=== PATIENT | female | born 1955 | race Caucasian/White ===

== ENCOUNTER 2021-07-29 13:51 | Outpatient (RCR) | payer OTHER, SELFPAY ==
--- NOTE | 2021-07-29 17:18 | PT.OIE ---
Current Diagnoses Dizziness and giddiness (07/29/21) Visit Care Team Role Provider Type Cedrick Briceno DO Attending Provider Non-Staff Family Provider Primary Care Provider Referring Provider Specialty: Internal Medicine Address: [facility] [place], [address] Email: Physical Therapy Initial Evaluation PT-OP-A Visit Information Start: 07/29/21 16:53 Freq: Status: Active Protocol: Document 07/29/21 14:30 DCW (Rec: 07/29/21 17:18 DCW [id number]) Out-Patient Physical Therapy Visit Information Visit Information Visit Type Initial Evaluation Visit Start Time 14:30 Visit Stop Time 15:15 Total Visit Minutes 45 Visit Number 1 Number of UNHAIRER Visits 0 Evaluation Information Evaluation Date 07/29/21 PT-OP-B Current Condition Start: 07/29/21 16:53 Freq: Status: Active Protocol: Document 07/29/21 14:30 DCW (Rec: 07/29/21 17:18 DCW [id number]) Current Condition History of Current Condition Onset Date 07/29/21 Current Complaints Position-dependent vertigo History of Current Condition Pt is a 66 year old female presenting with an approximately seven hour history of positional vertigo. Pt admits she has had positional vertigo off and on for decades, it frequently comes and goes, she can be asymptomatic for months in-between episodes, but it always seems to come back. Pt notes that she was previously successfully treated with canalith repositioning by a chiropractor, which helped for a time. Since that time, she performs BDEs twice weeks, whether or not she has symptoms.Pt reports the vertigo lasts only ~one minute , but she will often feel off balance or nauseated for hours . Symptoms are provoked by performing sit<->supine movements. Pt denies recent hearing changes, tinnitus Pt reports symptoms are waxing/ waning in nature. 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 PT-OP-C Subjective Start: 07/29/21 16:53 Freq: Status: Active Protocol: Document 07/29/21 14:30 DCW (Rec: 07/29/21 17:18 DCW [id number]) OP-PT Subjective Patient Comments Patient Comments I'm feeling better than I was this morning. Patient Reported Progress Improving Patient Questionnaires Dizziness Handicap Inventory DHI Score 68% DHI Functional Impairment 60 to 79% Impaired (Score 60- 79) PT-OP-O Vestibular Start: 07/29/21 16:53 Freq: Status: Active Protocol: Document 07/29/21 14:30 DCW (Rec: 07/29/21 17:18 DCW [id number]) Vestibular Assessment Screening Tests Vestibular Artery Screen Negative Auditory Tests Bruno Test Within normal limits Rinne Test Negative Air Conduction Results Equal Visual Testing Smooth Pursuits Horizontal WNL Smooth Pursuits Vertical WNL Saccades Horizontal WNL Saccades Vertical WNL Heave Test Negative Thrust Head Negative Positional Testing [place]-Hallpike Negative Left,Negative Right Rolling Test Negative Left,Negative Right Supine to Sit Negative Sit to Supine Negative PT-OP-Q Treatments Start: 07/29/21 16:53 Freq: Status: Active Protocol: Document 07/29/21 14:30 DCW (Rec: 07/29/21 17:18 DCW [id number]) Canalithic Repositioning BPPV Treatment Braeden Affected Canal(s) ?Posterior? Reps R x1 PT-OP-T Assessment and Plan Start: 07/29/21 16:53 Freq: Status: Active Protocol: Document 07/29/21 14:30 DCW (Rec: 07/29/21 17:18 DCW [id number]) Physical Therapy Assessment Rehab Potential Rehabilitation Potential Excellent Evaluation Complexity Number of Personal Factors/Comorbidities 1-2 Number of Body Systems Impaired 1-2 Clinical Presentation at Evaluation Stable Impairments Impairments Balance,Vestibular Goals One Impairment Pt reports positional vertigo with bed mobiltiy Fpc Goal (LTG) Pt to be asymptomatic with all bed mobility for a full week LTG Duration 08/28/21 Assessment Summary Assessment Pt's vestibular examination today was entirely negative. Pt's subjective history and medical history are very strongly suggestive of BPPV. Pt did admit she had performed her BDEs earlier today, which , as BPPV symptoms are a fatigable reflex, could have possibly resulted in her negative testing this afternoon. As BPPV typically overwhelmingly presents as posterior canalithiasis, and pt reports she typically sleeps on her right side, this therapist felt comfortable playing to the odds and attempting a right-sided modified Braeden maneuver in an effort to clear potential canaliths, despite negative positional testing. Additionally, pt and her were provided with verbal and written instructions in performing a self-CRM. As pt needs to drive one hour to get to this clinic, it was decided that no further appointments be scheduled at this time, and pt and her will try to self-treat as necessary. If pt does require further treatment, pt is welcome to return to this clinic, or may look for treatment closer to home. Also discussed with pt today the overall inconclusive effectiveness of BDEs to treat or prevent recurrence of BPPV. Physical Therapy Plan Frequency and Duration Frequency of Treatment as indicated Duration of Treatment 6 weeks Plan of Care Start Date 07/29/21 Plan of Care End Date 09/09/21 Therapeutic Interventions Therapeutic Interventions Balance Training,Canalithic Repositioning,Vestibular Rehabilitation Next Visit Focus/Plan Next Note Type Treatment Note Next Visit Plan Further positional testing, CRM as indicated
--- NOTE | 2021-07-29 17:19 | PT.OPPOC ---
Physical, Occupational & Speech Therapy At [facility] Current Diagnoses Dizziness and giddiness (07/29/21) Visit Care Team Role Provider Type Cedrick Briceno DO Attending Provider Non-Staff Family Provider Primary Care Provider Referring Provider Specialty: Internal Medicine Address: [facility]– [place][note 2] [place], [address] Email: Plan Of Care PT-OP-T Assessment and Plan Start: 07/29/21 16:53 Freq: Status: Active Protocol: Document 07/29/21 14:30 DCW (Rec: 07/29/21 17:18 DCW [id number]) Physical Therapy Assessment Rehab Potential Rehabilitation Potential Excellent Evaluation Complexity Number of Personal Factors/Comorbidities 1-2 Number of Body Systems Impaired 1-2 Clinical Presentation at Evaluation Stable Impairments Impairments Balance,Vestibular Goals One Impairment Pt reports positional vertigo with bed mobility Custodial Goal (LTG) Pt to be asymptomatic with all bed mobility for a full week LTG Duration 08/28/21 Assessment Summary Assessment Pt's vestibular examination today was entirely negative. Pt's subjective history and medical history are very strongly suggestive of BPPV. Pt did admit she had performed her BDEs earlier today, which , as BPPV symptoms are a fatigable reflex, could have possibly resulted in her negative testing this afternoon. As BPPV typically overwhelmingly presents as posterior canalithiasis, and pt reports she typically sleeps on her right side, this therapist felt comfortable playing to the odds and attempting a right-sided modified Braeden maneuver in an effort to clear potential canaliths, despite negative positional testing. Additionally, pt and her were provided with verbal and written instructions in performing a self-CRM. As pt needs to drive one hour to get to this clinic, it was decided that no further appointments be scheduled at this time, and pt and her will try to self-treat as necessary. If pt does require further treatment, pt is welcome to return to this clinic, or may look for treatment closer to home. Also discussed with pt today the overall inconclusive effectiveness of BDEs to treat or prevent recurrence of BPPV. Physical Therapy Plan Frequency and Duration Frequency of Treatment as indicated Duration of Treatment 6 weeks Plan of Care Start Date 07/29/21 Plan of Care End Date 09/09/21 Therapeutic Interventions Therapeutic Interventions Balance Training,Canalithic Repositioning,Vestibular Rehabilitation Next Visit Focus/Plan Next Note Type Treatment Note Next Visit Plan Further positional testing, CRM as indicated Plan of Care Dates Plan of Care Start Date 07/29/21 Plan of Care End Date 09/09/21 Electronically Signed by: Kyle Borden, PT 07/29/21 [id number] Please Sign and Return: I have reviewed this Plan of Care and certify that the skilled therapy services above are required to meet the patient?s needs. Physician Signature Date Printed Name and Credentials Clinical Instructor Signature Printed Name and Credentials
--- NOTE | 2021-11-12 10:15 | PT.OPDS ---
Current Diagnoses Dizziness and giddiness (07/29/21) Visit Care Team Role Provider Type Cedrick Briceno DO Attending Provider Non-Staff Family Provider Primary Care Provider Referring Provider Specialty: Internal Medicine Address: [facility] [place], [address] Email: Visit Number Visit Number 1 Discharge Summary PT-OP-B Current Condition Start: 07/29/21 16:53 Freq: Status: Active Protocol: Document 07/29/21 14:30 DCW (Rec: 07/29/21 17:18 DCW [id number]) Current Condition History of Current Condition Onset Date 07/29/21 Current Complaints Position-dependent vertigo History of Current Condition Pt is a 66 year old female presenting with an approximately seven hour history of positional vertigo. Pt admits she has had positional vertigo off and on for decades, it frequently comes and goes, she can be asymptomatic for months inbetween episodes, but it always seems to come back. Pt notes that she was previously successfully treated with canalith repositioning by a chiropractor, which helped for a time. Since that time, she performs BDEs twice weeks, whether or not she has symptoms.Pt reports the vertigo lasts only ~one minute , but she will often feel off balance or nauseated for hours . Symptoms are provoked by performing sit<->supine movements. Pt denies recent hearing changes, tinnitus Pt reports symptoms are waxing/ waning in nature. 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 PT-OP-C Subjective Start: 07/29/21 16:53 Freq: Status: Active Protocol: Document 07/29/21 14:30 DCW (Rec: 07/29/21 17:18 DCW [id number]) OP-PT Subjective Patient Comments Patient Comments I'm feeling better than I was this morning. Patient Reported Progress Improving Patient Questionnaires Dizziness Handicap Inventory DHI Score 68% DHI Functional Impairment 60 to 79% Impaired (Score 60- 79) PT-OP-O Vestibular Start: 07/29/21 16:53 Freq: Status: Active Protocol: Document 07/29/21 14:30 DCW (Rec: 07/29/21 17:18 DCW [id number]) Vestibular Assessment Screening Tests Vestibular Artery Screen Negative Auditory Tests Bruno Test Within normal limits Rinne Test Negative Air Conduction Results Equal Visual Testing Smooth Pursuits Horizontal WNL Smooth Pursuits Vertical WNL Saccades Horizontal WNL Saccades Vertical WNL Heave Test Negative Thrust Head Negative Positional Testing [place]-Hallpike Negative Left,Negative Right Rolling Test Negative Left,Negative Right Supine to Sit Negative Sit to Supine Negative PT-OP-T Assessment and Plan Start: 07/29/21 16:53 Freq: Status: Active Protocol: Document 11/12/21 10:13 DCW (Rec: 11/12/21 10:15 DCW [id number]) Physical Therapy Assessment Assessment Summary Assessment At time of eval, pt was treated for BPPV, and she and her were instructed in self-Braeden. Due to pt's one hour drive to this clinic, they were unsure if they would return for follow-up. Pt has now not been seen in more than three months. Pt will be discharged from skilled PT at this time, will require a new referral in order to return Physical Therapy Plan Discharge Physical Therapy Discharge Reasons No Longer Attending PT Next Visit Focus/Plan Next Note Type Discharge Summary
== END 2021-11-16 13:50 ==
LOC: PHYS 13:51
PROVIDERS: Family Provider Internal Medicine; PCP Internal Medicine; Referring Provider Internal Medicine; Visit Provider Internal Medicine
DX: R42 Dizziness and giddiness (principal)
CPT/HCPCS: 95992; 97161